=== PATIENT | female | born 1980 | race Caucasian/White ===

== ENCOUNTER 2021-12-09 22:52 | Inpatient (IN) | payer OTHER, SELFPAY ==
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
[2021-12-10 06:00] VITALS: BP 132/82; PULSE 68; RESP 16; TEMP 36.6; O2SAT 96
[2021-12-10] MEDS: LORazepam 1 MG TABLET PO (07:58)
[2021-12-10] MEDS: Gabapentin 300 MG CAPSULE PO ×2 (07:58→21:22)
[2021-12-10] MEDS: Escitalopram Oxalate 10 MG TABLET PO (07:58)
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
[2021-12-10] MEDS: DULoxetine HCl 20 MG CAPSULE.DR 40 MG PO (14:13)
[2021-12-10 15:45] VITALS: BP 143/84; PULSE 66; TEMP 36.2; O2SAT 96
[2021-12-10] MEDS: Acetaminophen 325 MG TABLET 650 MG PO (15:52)
[2021-12-10] MEDS: cloNIDine HCL 0.1 MG TABLET PO ×2 (15:53→21:23)
[2021-12-10 21:10] VITALS: BP 156/74; PULSE 72; TEMP 36.5
[2021-12-10] MEDS: traZODone HCL 50 MG TABLET PO (21:44)
[2021-12-11 06:00] VITALS: BP 122/67; PULSE 66; RESP 16; TEMP 36.9; O2SAT 98
[2021-12-11] MEDS: cloNIDine HCL 0.1 MG TABLET PO ×3 (06:59→21:13)
[2021-12-11] MEDS: Gabapentin 300 MG CAPSULE PO ×2 (08:28→21:12)
[2021-12-11] MEDS: DULoxetine HCl 20 MG CAPSULE.DR 40 MG PO (08:28)
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
[2021-12-11] MEDS: Acetaminophen 325 MG TABLET 650 MG PO (10:34)
[2021-12-11] MEDS: hydrOXYzine HCL 25 MG TABLET PO (11:48)
[2021-12-11 14:03] VITALS: BMI 30.1
--- NOTE | 2021-12-11 15:49 | P.PNPSI_ITS ---
Subjective Subjective Date of Service: 12/11/21 Reason For Visit: adjustment d/o; w/ mixed anxiety, depression,PTSD Interim History: Late entry for patient seen 12/11 Patient reports feeling a little better; no nightmares no panic last night and slept better. She remains with some depression and anxiety but says it is possible that most of it is due to the high acuity on the milieu and overall she does not feel as worked up and more able to be calm. She agrees to start Risperdal 0.5 mg just to help with mood lability and on the outside chance that she does have some amount of bipolar disorder. Mental Status Exam Mental Status Exam Narrative: Pt is alert and oriented; behavior is cooperative, more calm, not distraught; dressed in casual attire, adequately groomed; mood is described as anxious and affect congruent but calmer; eye contact appropriate; Speech is normal rate, volume and prosody and not pressured; no psychomotor agitation/retardation present; thought process is organized and goal directed; Thought content is on Trying to deal with overwhelming feelings tx; otherwise pertinent to relevant topics and without any delusional content, paranoid ideations or grandiosity; denies any SI/HI. There is no evidence of perceptual disturbance.?Patients insight and judgment appear intact. Diagnostics Vital Signs (24Hr): Vital Signs - 24 hr 12/10/21 21:10 12/11/21 06:00 Temperature 97.7 F 98.5 F Pulse Rate 72 66 Respiratory Rate 16 Blood Pressure 156/74 H 122/67 Pulse Oximetry 98 BMI result Body Mass Index 30.1 Medications Medications Current Medications Acetaminophen (Acetaminophen 325 Mg Tablet) 650 mg PO Q6H PRN PRN Reason: Headache/Pain Mild Scale (1-3) Last Admin: 12/11/21 10:34 Dose: 650 mg Documented by: Al Hydroxide/Mg Hydroxide (Magnesium Hydrox/Alum Hydrox 30 Ml Oral.Susp) 30 ml PO Q6H PRN PRN Reason: Heartburn/Nausea Clonidine HCl (Clonidine Hcl 0.1 Mg Tablet) 0.1 mg PO Q4H PRN; Protocol PRN Reason: moderate anxiety Last Admin: 12/11/21 06:59 Dose: 0.1 mg Documented by: Clonidine HCl (Clonidine Hcl 0.1 Mg Tablet) 0.1 mg PO BEDTIME BREANA; Protocol Last Admin: 12/10/21 21:23 Dose: 0.1 mg Documented by: Duloxetine HCl (Duloxetine Hcl 20 Mg Capsule.Dr) 40 mg PO DAILY [facility] Last Admin: 12/11/21 08:28 Dose: 40 mg Documented by: Gabapentin (Gabapentin 300 Mg Capsule) 300 mg PO BID [facility] Last Admin: 12/11/21 08:28 Dose: 300 mg Documented by: Hydroxyzine HCl (Hydroxyzine Hcl 25 Mg Tablet) 25 mg PO Q6H PRN PRN Reason: Anxiety Last Admin: 12/11/21 11:48 Dose: 25 mg Documented by: Magnesium Hydroxide (Milk Of Magnesia 30 Ml Oral.Susp) 30 ml PO DAILY PRN PRN Reason: Constipation Nicotine Polacrilex (Nicotine Polacrilex 2 Mg Gum) 4 mg BUCCAL Q2H PRN PRN Reason: Nicotine Cravings Trazodone HCl (Trazodone Hcl 50 Mg Tablet) 50 mg PO BEDTIME PRN PRN Reason: Insomnia Last Admin: 12/10/21 21:44 Dose: 50 mg Documented by: Allergies Allergies Allergy/AdvReac Type Severity Reaction Status Date / Time fluoxetine [From Prozac] AdvReac Unknown Unknown Unverified 12/10/21 03:39 Assessment & Plan Assessment & Plan (1) MDD (major depressive disorder), recurrent episode, moderate: Status: Acute Code(s): F33.1 - Major depressive disorder, recurrent, moderate (2) Chronic post-traumatic stress disorder (PTSD): Status: Acute Code(s): F43.12 - Post-traumatic stress disorder, chronic (3) Panic attack: Status: Acute Code(s): F41.0 - Panic disorder [episodic paroxysmal anxiety] Plan Patient is a 41-year-old female with history of depression, PTSD, panic, Retinitis Pigmentosa who presents for worsening depression, SI and PTSD symptoms due to being overwhelmed with numerous psychosocial stressors including impending blindness and financial strife. -currently patient denies SI -patient has depression, panic and PTSD symptoms -patient endorses what may be hypomanic episodes; however it is not fully clear to policy writer if these are truly discrete episodes and if they are if they are due to bipolar disorder.? Patient endorses episodes but also says that many of these same symptoms are present regularly, independent of any episode; Rather it seems she is saying that these symptoms/behaviors exist normally day-to-day but can be increased or intensified at times, frequently triggered by some a vent.? It is thus possible the patient has long history of trauma And subsequent PTSD symptoms could appear to be hypomanic episodes. She says she thinks fathers side of family may have bipolar disorder, but this too is not conclusive.? At this time, bipolar disorder will remain a rule out.? This was discussed with patient who agrees that it is ambiguous.? She also understands that increasing duloxetine could trigger a manic episode.? At this time policy writer leans Away from the diagnosis of bipolar disorder and agrees to increase duloxetine since it has been partially helpful.? That said, patient may benefit from a mood stabilizer regardless of whether she has bipolar disorder to which patient agrees to discuss further 12/11 tolerating increased Cymbalta; agrees to Risperdal 0.5 mg b.i.d. for help with mood stability, emotional lability and the outside chance that she has hypomanic episodes PLAN: CV? Q 15 minute checks Start Risdera 0.5mg BID for help with mood stability, emotional lability and the outside chance that she has hypomanic episodes; policy writer reviewed risks/side effect of this medication; patient ask questions and understood and wanted to continue Continue duloxetine to 40 mg; 20 mg has been partially helpful Continue clonidine 0.1 mg p.r.n. and at bedtime for help with anxiety/panic Will consider mood stabilizer, possibly Lamictal or atypical antipsychotic Patient has a therapist and is open to engaging in trauma informed therapy I spent minutes with the patient and/or on the patient floor today, greater than?50% of which was spent counseling/coordinating care. Patient educated on: diagnosis and medication risk/benefits Informed Consent: understands Reason for contiued inpatient stay Substantial Risk for: rapid decompensation
[2021-12-11 16:15] VITALS: BP 148/82; PULSE 60; RESP 18; TEMP 36.7; O2SAT 97
[2021-12-11 21:07] VITALS: BP 130/89; PULSE 69; RESP 20; TEMP 36.9; O2SAT 97
[2021-12-11] MEDS: risperiDONE 0.5 MG TABLET PO (21:13)
[2021-12-11] MEDS: traZODone HCL 50 MG TABLET PO (21:13)
[2021-12-12 06:55] VITALS: BP 117/66; PULSE 78; RESP 16; TEMP 36.8; O2SAT 99
[2021-12-12] MEDS: hydrOXYzine HCL 25 MG TABLET PO ×3 (08:00→20:30)
[2021-12-12] MEDS: DULoxetine HCl 20 MG CAPSULE.DR 40 MG PO (08:00)
[2021-12-12] MEDS: Gabapentin 300 MG CAPSULE PO ×2 (08:00→20:30)
[2021-12-12] MEDS: risperiDONE 0.5 MG TABLET PO ×2 (08:00→20:30)
--- NOTE | 2021-12-12 17:33 | P.PNPSI_ITS ---
Subjective Subjective Date of Service: 12/13/21 Reason For Visit: adjustment d/o; w/ mixed anxiety, depression,PTSD Subjective Notes: [place]o Warning and Conditional Voluntary Healthcare Proxy: No Guardianship: No Medical Problems Affecting Mental Status: No Interim History: Patient seen and discussed with team. Patient evaluated today and upon interview pt reports she feels a little edgy today, working on disability paperwork, not getting SSI benefits, however [facility] said she should be due to severity of her neck injury. Pt is interested in discharging to respite and stepping down further to [facility] She reports experiencing med SE of dizzy and blurred vision, however says this has resolved, does not want med changes. In the milieu, patient is safe and appropriate in behavior. Denies SI/SIB/HI upon inquiry. Denies irritability or assaultive ideation. Says she feels safe. Medication Compliance: Yes Side effects from medications: No Attending Groups: Yes Review of Systems Acute medical concerns: No Medical Review of Systems: unchanged Mental Status Exam Mental Status Exam Narrative: Pt is alert and oriented; behavior is cooperative, teaful, distraught; dressed in casual attire, adequately groomed; mood is described as edgy and affect congruent, tearful, anxious; eye contact appropriate; Speech is normal rate, volume and prosody and not pressured; no psychomotor agitation/retardation present; thought process is organized and goal directed; Thought content is on Trying to deal with overwhelming feelings tx; otherwise pertinent to relevant topics and without any delusional content, paranoid ideations or grandiosity; denies any SI/HI. There is no evidence of perceptual disturbance. ?Patients insight and judgment appear intact. Diagnostics Vital Signs (24Hr): Vital Signs - 24 hr 12/11/21 21:07 12/12/21 06:55 Temperature 98.4 F 98.3 F Pulse Rate 69 78 Respiratory Rate 20 16 Blood Pressure 130/89 117/66 Pulse Oximetry 97 99 BMI result Body Mass Index 30.1 Medications Medications Current Medications Acetaminophen (Acetaminophen 325 Mg Tablet) 650 mg PO Q6H PRN PRN Reason: Headache/Pain Mild Scale (1-3) Last Admin: 12/11/21 10:34 Dose: 650 mg Documented by: Al Hydroxide/Mg Hydroxide (Magnesium Hydrox/Alum Hydrox 30 Ml Oral.Susp) 30 ml PO Q6H PRN PRN Reason: Heartburn/Nausea Clonidine HCl (Clonidine Hcl 0.1 Mg Tablet) 0.1 mg PO Q4H PRN; Protocol PRN Reason: moderate anxiety Last Admin: 12/11/21 16:14 Dose: 0.1 mg Documented by: Clonidine HCl (Clonidine Hcl 0.1 Mg Tablet) 0.1 mg PO BEDTIME BREANA; Protocol Last Admin: 12/11/21 21:13 Dose: 0.1 mg Documented by: Duloxetine HCl (Duloxetine Hcl 20 Mg Capsule.Dr) 40 mg PO DAILY [facility] Last Admin: 12/12/21 08:00 Dose: 40 mg Documented by: Gabapentin (Gabapentin 300 Mg Capsule) 300 mg PO BID [facility] Last Admin: 12/12/21 08:00 Dose: 300 mg Documented by: Hydroxyzine HCl (Hydroxyzine Hcl 25 Mg Tablet) 25 mg PO Q6H PRN PRN Reason: Anxiety Last Admin: 12/12/21 14:48 Dose: 25 mg Documented by: Magnesium Hydroxide (Milk Of Magnesia 30 Ml Oral.Susp) 30 ml PO DAILY PRN PRN Reason: Constipation Nicotine Polacrilex (Nicotine Polacrilex 2 Mg Gum) 4 mg BUCCAL Q2H PRN PRN Reason: Nicotine Cravings Risperidone (Risperidone 0.5 Mg Tablet) 0.5 mg PO BID [facility] Last Admin: 12/12/21 08:00 Dose: 0.5 mg Documented by: Trazodone HCl (Trazodone Hcl 50 Mg Tablet) 50 mg PO BEDTIME PRN PRN Reason: Insomnia Last Admin: 12/11/21 21:13 Dose: 50 mg Documented by: Allergies Allergies Allergy/AdvReac Type Severity Reaction Status Date / Time fluoxetine [From Prozac] AdvReac Severe blurred Verified 12/11/21 21:12 vision cefadroxil [From Duricef] AdvReac Intermediate Hives Verified 12/11/21 21:12 Assessment & Plan Assessment & Plan (1) Routine medical exam: Status: Acute Code(s): Z00.00 - Encounter for general adult medical examination without abnormal findings Plan Patient is a 41-year-old female with history of depression, PTSD, panic, Retinitis Pigmentosa who presents for worsening depression, SI and PTSD symptoms due to being overwhelmed with numerous psychosocial stressors including impending blindness and financial strife. -currently patient denies SI -patient has depression, panic and PTSD symptoms -patient endorses what may be hypomanic episodes; however it is not fully clear to physician underwriter if these are truly discrete episodes and if they are if they are due to bipolar disorder.? Patient endorses episodes but also says that many of these same symptoms are present regularly, independent of any episode; Rather it seems she is saying that these symptoms/behaviors exist normally day-to-day but can be increased or intensified at times, frequently triggered by some a vent.? It is thus possible the patient has long history of trauma And subsequent PTSD symptoms could appear to be hypomanic episodes. She says she thinks fathers side of family may have bipolar disorder, but this too is not conclusive.? At this time, bipolar disorder will remain a rule out.? This was discussed with patient who agrees that it is ambiguous.? She also understands that increasing duloxetine could trigger a manic episode.? At this time physician underwriter leans Away from the diagnosis of bipolar disorder and agrees to increase duloxetine since it has been partially helpful.? That said, patient may benefit from a mood stabilizer regardless of whether she has bipolar disorder to which patient agrees to discuss further PLAN: CV? Q 15 minute checks Increase duloxetine to 40 mg; 20 mg has been partially helpful Start clonidine 0.1 mg p.r.n. and at bedtime for help with anxiety/panic Will consider mood stabilizer, possibly Lamictal or atypical antipsychotic Patient has a therapist and is open to engaging in trauma informed therapy 12/12/21: No med changes, pt will monitor risperdal and duloxetine for SE I spent minutes with the patient and/or on the patient floor today, greater than?50% of which was spent counseling/coordinating care. Patient educated on: medication risk/benefits and therapeutic strategies Reason for contiued inpatient stay Substantial Risk for: med/psych decompensation
[2021-12-12 18:00] VITALS: BP 162/98; PULSE 85; RESP 18; TEMP 37.2; O2SAT 98
[2021-12-12] MEDS: cloNIDine HCL 0.1 MG TABLET PO ×2 (20:29)
[2021-12-12] MEDS: Acetaminophen 325 MG TABLET 650 MG PO (20:30)
[2021-12-12] MEDS: traZODone HCL 50 MG TABLET PO (22:25)
[2021-12-13] MEDS: Acetaminophen 325 MG TABLET 650 MG PO (04:37)
[2021-12-13] MEDS: hydrOXYzine HCL 25 MG TABLET PO ×2 (04:38→17:46)
[2021-12-13 06:00] VITALS: BP 128/67; PULSE 73; TEMP 36.9; O2SAT 98
[2021-12-13] MEDS: risperiDONE 0.5 MG TABLET PO ×2 (08:51→21:12)
[2021-12-13] MEDS: DULoxetine HCl 20 MG CAPSULE.DR 40 MG PO (08:51)
[2021-12-13] MEDS: Gabapentin 300 MG CAPSULE PO ×2 (08:51→21:12)
[2021-12-13 17:44] VITALS: BP 123/71; PULSE 66
--- NOTE | 2021-12-13 20:53 | P.PNPSI_ITS ---
Subjective Subjective Date of Service: 12/13/21 Reason For Visit: adjustment d/o; w/ mixed anxiety, depression,PTSD Subjective Notes: [place]o Warning and Conditional Voluntary Healthcare Proxy: No Guardianship: No Medical Problems Affecting Mental Status: No Interim History: Patient seen and discussed with team. Patient evaluated today and upon interview pt reports she is interested in discharging to respite, this place is breaking me. Says she feels she is being bullied, feels wicked triggered, had to switch rooms. Still wants to go to respite, as she feels she can get help with disability paperwork. Pt does not feel this is a therapeutic setting for her, says she feels on eggshells here, triggered, and notices fight or flight. She is adovcating to leave. In the milieu, patient is safe and appropriate in behavior. Denies SI/SIB/HI upon inquiry. Denies irritability or assaultive ideation. Says she feels safe. Medication Compliance: Yes Side effects from medications: No Attending Groups: Yes Review of Systems Acute medical concerns: No Medical Review of Systems: unchanged Mental Status Exam Mental Status Exam Narrative: Pt is alert and oriented; behavior is cooperative, teaful, distraught; dressed in casual attire, adequately groomed; mood is described as anxious and affect congruent, tearful, anxious; eye contact appropriate; Speech is normal rate, volume and prosody and not pressured; no psychomotor agitation/retardation present; thought process is organized and goal directed; Thought content is on Trying to deal with overwhelming feelings tx; otherwise pertinent to relevant topics and without any delusional content, paranoid ideations or grandiosity; denies any SI/HI. There is no evidence of perceptual disturbance.?Patients insight and judgment appear intact. Diagnostics Vital Signs (24Hr): Vital Signs - 24 hr 12/13/21 06:00 12/13/21 17:44 12/13/21 21:15 Temperature 98.5 F Pulse Rate 73 66 74 Blood Pressure 128/67 123/71 143/84 H Pulse Oximetry 98 BMI result Body Mass Index 30.1 Medications Medications Current Medications Acetaminophen (Acetaminophen 325 Mg Tablet) 650 mg PO Q6H PRN PRN Reason: Headache/Pain Mild Scale (1-3) Last Admin: 12/13/21 04:37 Dose: 650 mg Documented by: Al Hydroxide/Mg Hydroxide (Magnesium Hydrox/Alum Hydrox 30 Ml Oral.Susp) 30 ml PO Q6H PRN PRN Reason: Heartburn/Nausea Clonidine HCl (Clonidine Hcl 0.1 Mg Tablet) 0.1 mg PO Q4H PRN; Protocol PRN Reason: moderate anxiety Last Admin: 12/12/21 20:29 Dose: 0.1 mg Documented by: Clonidine HCl (Clonidine Hcl 0.1 Mg Tablet) 0.1 mg PO BEDTIME BREANA; Protocol Last Admin: 12/13/21 21:12 Dose: 0.1 mg Documented by: Duloxetine HCl (Duloxetine Hcl 20 Mg Capsule.Dr) 40 mg PO DAILY [facility] Last Admin: 12/13/21 08:51 Dose: 40 mg Documented by: Gabapentin (Gabapentin 300 Mg Capsule) 300 mg PO BID [facility] Last Admin: 12/13/21 21:12 Dose: 300 mg Documented by: Hydroxyzine HCl (Hydroxyzine Hcl 25 Mg Tablet) 25 mg PO Q6H PRN PRN Reason: Anxiety Last Admin: 12/13/21 17:46 Dose: 25 mg Documented by: Magnesium Hydroxide (Milk Of Magnesia 30 Ml Oral.Susp) 30 ml PO DAILY PRN PRN Reason: Constipation Nicotine Polacrilex (Nicotine Polacrilex 2 Mg Gum) 4 mg BUCCAL Q2H PRN PRN Reason: Nicotine Cravings Risperidone (Risperidone 0.5 Mg Tablet) 0.5 mg PO BID [facility] Last Admin: 12/13/21 21:12 Dose: 0.5 mg Documented by: Trazodone HCl (Trazodone Hcl 50 Mg Tablet) 50 mg PO BEDTIME PRN PRN Reason: Insomnia Last Admin: 12/13/21 22:14 Dose: 50 mg Documented by: Allergies Allergies Allergy/AdvReac Type Severity Reaction Status Date / Time fluoxetine [From Prozac] AdvReac Severe blurred Verified 12/11/21 21:12 vision cefadroxil [From Duricef] AdvReac Intermediate Hives Verified 12/11/21 21:12 Assessment & Plan Assessment & Plan (1) Routine medical exam: Status: Acute Code(s): Z00.00 - Encounter for general adult medical examination without abnormal findings Plan Patient is a 41-year-old female with history of depression, PTSD, panic, Retinitis Pigmentosa who presents for worsening depression, SI and PTSD symptoms due to being overwhelmed with numerous psychosocial stressors including impending blindness and financial strife. -currently patient denies SI -patient has depression, panic and PTSD symptoms -patient endorses what may be hypomanic episodes; however it is not fully clear to fiction and nonfiction prose writer if these are truly discrete episodes and if they are if they are due to bipolar disorder.? Patient endorses episodes but also says that many of these same symptoms are present regularly, independent of any episode; Rather it seems she is saying that these symptoms/behaviors exist normally day-to-day but can be increased or intensified at times, frequently triggered by some a vent.? It is thus possible the patient has long history of trauma And subsequent PTSD sympt oms could appear to be hypomanic episodes. She says she thinks fathers side of family may have bipolar disorder, but this too is not conclusive.? At this time, bipolar disorder will remain a rule out.? This was discussed with patient who agrees that it is ambiguous.? She also understands that increasing duloxetine could trigger a manic episode.? At this time fiction and nonfiction prose writer leans Away from the diagnosis of bipolar disorder and agrees to increase duloxetine since it has been partially helpful.? That said, patient may benefit from a mood stabilizer regardless of whether she has bipolar disorder to which patient agrees to discuss further PLAN: CV? Q 15 minute checks Increase duloxetine to 40 mg; 20 mg has been partially helpful Start clonidine 0.1 mg p.r.n. and at bedtime for help with anxiety/panic Will consider mood stabilizer, possibly Lamictal or atypical antipsychotic Patient has a therapist and is open to engaging in trauma informed therapy 12/12/21: No med changes, pt will monitor risperdal and duloxetine for SE 12/13/21: No med changes, pt advocating for discharge I spent minutes with the patient and/or on the patient floor today, greater than?50% of which was spent counseling/coordinating care. Patient educated on: therapeutic strategies Reason for contiued inpatient stay Substantial Risk for: med/psych decompensation
[2021-12-13] MEDS: cloNIDine HCL 0.1 MG TABLET PO (21:12)
[2021-12-13 21:15] VITALS: BP 143/84; PULSE 74
[2021-12-13] MEDS: traZODone HCL 50 MG TABLET PO (22:14)
[2021-12-14] MEDS: Gabapentin 300 MG CAPSULE PO ×2 (06:15→21:17)
[2021-12-14] MEDS: Acetaminophen 325 MG TABLET 650 MG PO (06:15)
[2021-12-14 07:44] VITALS: BP 128/72; PULSE 67; TEMP 36.6; O2SAT 100
[2021-12-14] MEDS: DULoxetine HCl 20 MG CAPSULE.DR 40 MG PO (08:04)
[2021-12-14] MEDS: risperiDONE 0.5 MG TABLET PO ×2 (08:04→21:18)
[2021-12-14] MEDS: Ibuprofen 800 MG TABLET PO (15:51)
[2021-12-14] MEDS: hydrOXYzine HCL 25 MG TABLET PO ×2 (15:52→22:31)
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
[2021-12-14] MEDS: cloNIDine HCL 0.1 MG TABLET PO (21:17)
[2021-12-14] MEDS: traZODone HCL 50 MG TABLET PO (21:17)
[2021-12-14 21:30] VITALS: BP 153/91; PULSE 91; TEMP 36.3; O2SAT 99
[2021-12-15] MEDS: Ibuprofen 800 MG TABLET PO ×2 (05:13→19:57)
[2021-12-15 06:48] VITALS: BP 125/78; PULSE 72; RESP 18; TEMP 36.8; O2SAT 98
[2021-12-15] MEDS: Gabapentin 300 MG CAPSULE PO ×2 (08:03→21:59)
[2021-12-15] MEDS: DULoxetine HCl 20 MG CAPSULE.DR 40 MG PO (08:03)
[2021-12-15 11:20] VITALS: BP 166/79; PULSE 79
[2021-12-15] MEDS: Milk of Magnesia 30 ML ORAL.SUSP PO (11:30)
[2021-12-15] MEDS: hydrOXYzine HCL 25 MG TABLET PO ×2 (12:32→19:59)
[2021-12-15 12:40] VITALS: BP 166/97; PULSE 73; RESP 16; TEMP 37
--- NOTE | 2021-12-15 15:16 | HO.PSYCHPN ---
Subjective Subjective Date of Service: 12/15/21 Reason For Visit: adjustment d/o; w/ mixed anxiety, depression,PTSD Interim History: Patient reports that her mood remains better and denies any SI. One way she can tell is that despite the high acuity on the unit she has been able to remain calm and in control. She does complain of feeling some dizziness and nausea and a little blurred vision which she wonders if it was due to the increased in Cymbalta. Patient said that on Prozac and Zoloft this also happened. Conversely, she feels that the Risperdal 0.5 mg has a calming effect and that she Kind of likes it. She would like that to go back to being b.i.d.. After discussion of risks/side effects patient Would like to lower Cymbalta back to 20 mg and instead see if the Risperdal dose could make up the difference. She also thinks that clonidine is very helpful and has been sleeping well without any panic. She agrees to try it during the day for anxiety. Patient feels ready for discharge and to pursue treatment as an outpatient. Mental Status Exam Mental Status Exam Narrative: Pt is alert and oriented; behavior is cooperative, calm; dressed in casual attire, adequately groomed; mood is described as better and affect congruent, calm; eye contact appropriate; Speech is normal rate, volume and prosody and not pressured; no psychomotor agitation/retardation present; thought process is organized and goal directed; Thought content is on discharge and pursuing treatment as outpt; on medication management; otherwise pertinent to relevant topics and without any delusional content, paranoid ideations or grandiosity; denies any SI/HI. There is no evidence of perceptual disturbance.?Patients insight and judgment appear intact. Diagnostics Vital Signs (24Hr): Vital Signs - 24 hr 12/14/21 21:30 12/15/21 06:48 12/15/21 11:20 Temperature 97.3 F 98.3 F Pulse Rate 91 72 79 Respiratory Rate 18 Blood Pressure 153/91 H 125/78 166/79 H Pulse Oximetry 99 98 12/15/21 12:40 Temperature 98.6 F Pulse Rate 73 Respiratory Rate 16 Blood Pressure 166/97 H Pulse Oximetry BMI result Body Mass Index 30.1 Medications Medications Current Medications Acetaminophen (Acetaminophen 325 Mg Tablet) 650 mg PO Q6H PRN PRN Reason: Headache/Pain Mild Scale (1-3) Last Admin: 12/14/21 06:15 Dose: 650 mg Documented by: Al Hydroxide/Mg Hydroxide (Magnesium Hydrox/Alum Hydrox 30 Ml Oral.Susp) 30 ml PO Q6H PRN PRN Reason: Heartburn/Nausea Clonidine HCl (Clonidine Hcl 0.1 Mg Tablet) 0.1 mg PO Q4H PRN; Protocol PRN Reason: moderate anxiety Last Admin: 12/12/21 20:29 Dose: 0.1 mg Documented by: Clonidine HCl (Clonidine Hcl 0.1 Mg Tablet) 0.1 mg PO BEDTIME BREANA; Protocol Last Admin: 12/14/21 21:17 Dose: 0.1 mg Documented by: Duloxetine HCl (Duloxetine Hcl 20 Mg Capsule.Dr) 20 mg PO DAILY BREANA Gabapentin (Gabapentin 300 Mg Capsule) 300 mg PO BID BREANA Last Admin: 12/15/21 08:03 Dose: 300 mg Documented by: Hydroxyzine HCl (Hydroxyzine Hcl 25 Mg Tablet) 25 mg PO Q6H PRN PRN Reason: Anxiety Last Admin: 12/15/21 12:32 Dose: 25 mg Documented by: Ibuprofen (Ibuprofen 800 Mg Tablet) 800 mg PO Q8H PRN PRN Reason: mod-severe pain Last Admin: 12/15/21 05:13 Dose: 800 mg Documented by: Magnesium Hydroxide (Milk Of Magnesia 30 Ml Oral.Susp) 30 ml PO DAILY PRN PRN Reason: Constipation Last Admin: 12/15/21 11:30 Dose: 30 ml Documented by: Nicotine Polacrilex (Nicotine Polacrilex 2 Mg Gum) 4 mg BUCCAL Q2H PRN PRN Reason: Nicotine Cravings Trazodone HCl (Trazodone Hcl 50 Mg Tablet) 50 mg PO BEDTIME PRN PRN Reason: Insomnia Last Admin: 12/14/21 21:17 Dose: 50 mg Documented by: Allergies Allergies Allergy/AdvReac Type Severity Reaction Status Date / Time fluoxetine [From Prozac] AdvReac Severe blurred Verified 12/11/21 21:12 vision cefadroxil [From Duricef] AdvReac Intermediate Hives Verified 12/11/21 21:12 Assessment & Plan Assessment & Plan (1) MDD (major depressive disorder), recurrent episode, moderate: Status: Acute Code(s): F33.1 - Major depressive disorder, recurrent, moderate (2) Chronic post-traumatic stress disorder (PTSD): Status: Acute Code(s): F43.12 - Post-traumatic stress disorder, chronic (3) Panic attack: Status: Acute Code(s): F41.0 - Panic disorder [episodic paroxysmal anxiety] Plan Patient is a 41-year-old female with history of depression, PTSD, panic, Retinitis Pigmentosa who presents for worsening depression, SI and PTSD symptoms due to being overwhelmed with numerous psychosocial stressors including impending blindness and financial strife. -currently patient denies SI -patient has depression, panic and PTSD symptoms -patient endorses what may be hypomanic episodes; however it is not fully clear to play writer if these are truly discrete episodes and if they are if they are due to bipolar disorder.? Patient endorses episodes but also says that many of these same symptoms are present regularly, independent of any episode; Rather it seems she is saying that these symptoms/behaviors exist normally day-to-day but can be increased or intensified at times, frequently triggered by some a vent.? It is thus possible the patient has long history of trauma And subsequent PTSD symptoms could appear to be hypomanic episodes. She says she thinks fathers side of family may have bipolar disorder, but this too is not conclusive.? At this time, bipolar disorder will remain a rule out.? This was discussed with patient who agrees that it is ambiguous.? She also understands that increasing duloxetine could trigger a manic episode.? At this time play writer leans Away from the diagnosis of bipolar disorder and agrees to increase duloxetine since it has been partially helpful.? That said, patient may benefit from a mood stabilizer regardless of whether she has bipolar disorder to which patient agrees to discuss further 12/11 tolerating increased Cymbalta; agrees to Risperdal 0.5 mg b.i.d. for help with mood stability, emotional lability and the outside chance that she has hypomanic episodes 12/15 Patient attributes some dizziness and intermittent blurry vision some nausea to increased Cymbalta and would like to go back down to 20. Risperdal had been lowered but she would like a to go back to b.i.d. since she finds this calming. Patient also finds clonidine very helpful and has resolved nighttime panic; she will take it during the day as well as needed. Patient feels ready for discharge and wants to go back to respite. Much discussion had about ongoing therapy which she agrees to attend as an outpatient. Patient reports being in a good mood and denies any SI at all. She feels the medications have been helpful and Plans to return to the supportive environment of respite. Patient is not in imminent risk for harm to self or others and her request for discharge honored. PLAN: CV? Q 15 minute checks lowered Cymbalta back to 20mg INCrease back to Risdera 0.5mg BID (was only at bedtime) for help with mood stability, emotional lability and the outside chance that she has hypomanic episodes; play writer reviewed risks/side effect of this medication; patient ask questions and understood and wanted to continue Continue clonidine 0.1 mg p.r.n. and at bedtime for help with anxiety/panic Patient has a therapist and is open to engaging in trauma informed therapy I spent minutes with the patient and/or on the patient floor today, greater than?50% of which was spent counseling/coordinating care. Patient educated on: medication risk/benefits and therapeutic strategies Informed Consent: understands Reason for contiued inpatient stay Substantial Risk for: stable for discharge
--- NOTE | 2021-12-15 16:50 | P.DS_ITS ---
DS: Providers Provider Date of Service: 12/16/21 Date of admission: 12/09/21 22:52 Date of discharge: 12/16/21 Primary care physician: Unknown Physician Attending physician on admission: Kuldip Brush Consults: 12/10/21 03:40 Consult to Hospitalist Routine Consulting Provider: Hospitalist Reason For Exam: admission physical Attending physician on discharge: Kuldip Brush DS: Diagnosis Discharge Diagnosis (1) MDD (major depressive disorder), recurrent episode, moderate: Status: Acute (2) Chronic post-traumatic stress disorder (PTSD): Status: Acute (3) Panic attack: Status: Acute DS: Medications Discharge Medications Home Medications: Previous Rx's Medication Instructions Recorded acetaminophen 325 mg tablet 650 mg PO Q6H PRN #0 tab 12/15/21 clonidine HCl 0.1 mg tablet See Rx Instructions .ROUTE 12/15/21 .COMPLEX 30 Days #90 tab duloxetine 20 mg capsule,delayed 20 mg PO DAILY 30 Days #30 cap 12/15/21 release gabapentin 300 mg capsule 300 mg PO BID 30 Days #60 cap 12/15/21 hydroxyzine HCl 25 mg tablet 25 mg PO Q6H PRN 30 Days #90 tab 12/15/21 ibuprofen 800 mg tablet 800 mg PO Q8H PRN #0 tab 12/15/21 risperidone 0.5 mg tablet 0.5 mg PO BID 30 Days #60 tab 12/15/21 trazodone 50 mg tablet 50 mg PO BEDTIME PRN 30 Days #30 12/15/21 tab Mental Status Exam Mental Status Exam Narrative: Pt is alert and oriented; behavior is cooperative, calm; dressed in casual attire, adequately groomed; mood is described as good and affect congruent, calm; eye contact appropriate; Speech is normal rate, volume and prosody and not pressured; no psychomotor agitation/retardation present; thought process is organized and goal directed; Thought content is on discharge and pursuing treatment as outpt; on medication management;? otherwise pertinent to relevant topics and without any delusional content, paranoid ideations or grandiosity; denies any SI/HI. There is no evidence of perceptual disturbance.?Patients insight and judgment appear intact. DS: Summary Hospital Course Hospital Course: Patient is a 41-year-old female with history of depression, PTSD, panic, Retinitis Pigmentosa who presents for worsening depression, SI and PTSD symptoms due to being overwhelmed with numerous psychosocial stressors including impending blindness and financial strife. On admission, patient was depressed and tearful however denied SI which remained fully resolved. Patient explain history of depression, increasing panic and PTSD symptoms. Patient felt that Cymbalta 20 mg was partially helpful so it was increased to 40 mg. Also clonidine was scheduled for bedtime to help with nighttime panic and was also made available during the day for anxiety, both to good effect, patient reporting that she was sleeping well at all nighttime panic resovled; she also used trazodone for sleep. Patient was also started on Risperdal 0.5 mg b.i.d. for help with mood lability. Patient's mood improved and anxiety was reduced; also patient no longer had any panic attacks and found herself more emotionally stable despite the high acuity on the unit. Patient was engaged in treatment, attending groups and forthcoming in 1 on 1 sessions; she demonstrated good behavioral and impulse control throughout her time in the unit and was appropriate with peers and staff. Patient complained of some dizziness, nausea and some double vision which she said also happened on Prozac and Zoloft so her Cymbalta was lowered back to 20 mg. Patient however felt that the Risperdal was helpful and it she wanted it both in the morning and at bedtime. Patient remained in a good mood, with SI fully resolved, future or iented and requested discharge, feeling stable and ready to continue treatment as an outpatient. Therapy and DBT were both discussed with which patient said she was willing to engage. On the day of discharge patient reported that medications were helpful and side effects had mostly resolved. Patient was going to the supportive environment of respite. She was not in imminent risk for harm to self or others and her request for discharge honored. Time spent discussing smoking cessation with patient: 3 to 10 minutes Status at Discharge Functional status at discharge: independent ambulation Overall status at discharge: patient is back to baseline Time Spent with Patient Time attestation: Total time spent providing and/or coordinating discharge services: Time spent: Less than 30 minutes Discharge Plan Discharge Patient Disposition: Home, Self-Care Discharge Diagnosis: MDD, recurrent, moderate in full remission; PTSD, chronic Referrals: Lorenzo Butts, [facility] [Other] - 12/17/21 11:00 am (Your next appointment with Lorenzo Butts for therapy is 12/17/21 at 11AM via Zoom. He will send a link to your cell phone and the instructions are to click the link once you receive the text. Per policy at [facility]: to be assigned a psychiatrist at [facility] you must see therapist and attend at least 2 scheduled therapy sessions and then [facility] will assign you a prescriber for medications. ) [facility] [Other] - 12/23/21 11:30 am (Your appointment with Jeff for assistance with completing your Social security application is 12/23/21 at 11:30am via Zoom. At this time they do not offer in person appointments. Please email Jeff prior to 12/23/21 at [email or web address] and she will send link for Zoom call.) [facility] [Other] - 1 Week (Follow up with Damaris as needed for assistance with financial assistance application and eligibility. ) [facility] [Other] - 12/16/21 (Step down to CSU at [facility] [place]. Follow up with outpatient providers as scheduled. ) [facility] VILLASENOR [Other] - 1 Week (WAITING FOR CALL BACK Office will call pt with appt date/time) Discharge Medications: New clonidine HCl 0.1 mg Tablet See Rx Instructions mg .ROUTE .COMPLEX 30 Days Qty: 90 0RF Protocol: Hold for SBP< HOLD for SBP < : 90 Rx Instructions: take 1 tab at bedtime; may also take during the day TID as needed for anxiety gabapentin 300 mg Capsule 300 mg PO BID 30 Days Qty: 60 0RF acetaminophen 325 mg Tablet 650 mg PO Q6H PRN (Reason: Headache/Pain Mild Scale (1-3)) Qty: 0 0RF duloxetine 20 mg Capsule,Delayed Release(Dr/Ec) 20 mg PO DAILY 30 Days Qty: 30 0RF ibuprofen 800 mg Tablet 800 mg PO Q8H PRN (Reason: mod-severe pain) Qty: 0 0RF risperidone 0.5 mg Tablet 0.5 mg PO BID 30 Days Qty: 60 0RF trazodone 50 mg Tablet 50 mg PO BEDTIME PRN (Reason: Insomnia) 30 Days Qty: 30 0RF hydroxyzine HCl 25 mg Tablet 25 mg PO Q6H PRN (Reason: Anxiety) 30 Days Qty: 90 0RF Discontinued hydroxyzine HCl 25 mg tablet See Rx Instructions .ROUTE .COMPLEX 0RF Rx Instructions: take 1 tablet by mouth 3 times per day as needed for anxiety gabapentin 300 mg Tablet 300 mg PO BID 0RF Celexa 20 mg PO DAILY 0RF lorazepam 1 mg PO BID PRN (Reason: Anxiety) 0RF Discharge Orders: Discharge Order (Routine); Ordered 12/16/21 Ordered By: Kuldip Brush Diet: regular diet Activity on Discharge: As tolerated Stand Alone Forms: Patient Portal Discharge page, Community Support Care Plan Goals: Maintain mood and safe behaviors Take medications as prescribed Practice coping skills Continue with outpatient providers and reach out to them as needed Health Concerns: Mood stability and behaviors Retinitis Pigmentosa Plan of Treatment: Follow up with your PCP, psychiatric provider and other outpatient providers regarding above concerns Take medications as prescribed Assessment: Risk assessment at time of discharge:? Patient was interviewed prior to discharge and found to be fully oriented and without any SI or HI. Patient has insight and demonstrates good judgment in terms of wanting to pursue treatment. Patient is not in imminent risk of harm to self or others and has a safety plan that includes presenting to the closest ER or calling 911 if feeling unsafe.? Patient has been observed closely by nursing and unit staff throughout admission; patient has not engaged in any behaviors that suggest dangerousness to self or others and has demonstrated appropriate behaviors and impulse control Discharge Date/Time: 12/16/21 13:00
[2021-12-15 21:55] VITALS: BP 145/84; PULSE 84; TEMP 36.8
[2021-12-15] MEDS: Magnesium Citrate 300 ML SOLUTION PO (21:58)
[2021-12-15] MEDS: risperiDONE 0.5 MG TABLET PO (22:00)
[2021-12-15] MEDS: cloNIDine HCL 0.1 MG TABLET PO (22:01)
[2021-12-15] MEDS: traZODone HCL 50 MG TABLET PO (22:15)
[2021-12-16 06:00] VITALS: BP 134/86; PULSE 79; RESP 16; TEMP 36.8; O2SAT 99
[2021-12-16] MEDS: Gabapentin 300 MG CAPSULE PO (08:19)
[2021-12-16] MEDS: Ibuprofen 800 MG TABLET PO (08:19)
[2021-12-16] MEDS: DULoxetine HCl 20 MG CAPSULE.DR PO (08:19)
[2021-12-16] MEDS: risperiDONE 0.5 MG TABLET PO (08:19)
[2021-12-16] MEDS: cloNIDine HCL 0.1 MG TABLET PO (11:02)
[2021-12-16] MEDS: hydrOXYzine HCL 25 MG TABLET PO (11:02)
== END 2021-12-16 13:00 | disposition home or self-care (01) | DRG 751 ==
PROVIDERS: Admitting Provider Psychiatry & Neurology Psychiatry; Visit Provider Psychiatry & Neurology Psychiatry
DX: F33.1 Major depressive disorder, recurrent, moderate (principal); R45.851 Suicidal ideations; F41.0 Panic disorder [episodic paroxysmal anxiety]; F43.10 Post-traumatic stress disorder, unspecified; F43.12 Post-traumatic stress disorder, chronic; Z90.710 Acquired absence of both cervix and uterus; H35.52 Pigmentary retinal dystrophy; Z87.891 Personal history of nicotine dependence; Z88.8 Allergy status to other drugs, medicaments and biological substances; Z79.899 Other long term (current) drug therapy